=== PATIENT | female | born 1960 ===

== ENCOUNTER → 2017-09-26 | Outpatient (CLI) | payer OTHER ==
[~2017-09-26] MED LIST: HYZAAR 100/25 T1 TAB PO; MEFORMIN; METFORMIN 500 MG PO; METFORMIN HCL500 M2 PO; PRILOSEC20 MG PO; SYNTHROID50 MCG PO; TOBREX 0.30.15 MG/DR OP; ZITHROMAX200 MG PO; ZYRTEC10 MG PO
== END | disposition home or self-care (01) ==
LOC: PPHC 08:23
DX: S01.141A Puncture wound with foreign body of right eyelid and periocular area, initial encounter (principal); W60.XXXA Contact with nonvenomous plant thorns and spines and sharp leaves, initial encounter; Y93.89 Activity, other specified; Y92.098 Other place in other non-institutional residence as the place of occurrence of the external cause; Y99.8 Other external cause status

== ENCOUNTER 2020-02-01 06:48 | Outpatient (CLI) | payer OTHER | END 2020-02-01 15:00 | disposition home or self-care (01) | LOC: LAB 06:48 | PROVIDERS: ATTEND Internal Medicine Cardiovascular Disease | DX: I10 Essential (primary) hypertension (principal); E11.9 Type 2 diabetes mellitus without complications; E03.8 Other specified hypothyroidism; E78.2 Mixed hyperlipidemia; E55.9 Vitamin D deficiency, unspecified ==

== ENCOUNTER 2020-02-01 08:06 | Outpatient (CLI) | payer OTHER | END 2020-02-01 08:10 | disposition home or self-care (01) | LOC: RAD 08:06 | PROVIDERS: ATTEND Internal Medicine Cardiovascular Disease | DX: M12.811 Other specific arthropathies, not elsewhere classified, right shoulder (principal); J44.9 Chronic obstructive pulmonary disease, unspecified ==

== ENCOUNTER 2020-02-14 11:31 | Outpatient (CLI) | payer OTHER | END 2020-02-14 11:37 | disposition home or self-care (01) | LOC: NUCLEAR 11:31 | PROVIDERS: ATTEND Internal Medicine Cardiovascular Disease | DX: M81.0 Age-related osteoporosis without current pathological fracture (principal); E55.9 Vitamin D deficiency, unspecified ==